=== PATIENT | female | born 1980 | race Caucasian/White ===

== ENCOUNTER 2024-12-07 20:03 | Emergency (ER) | payer OTHER ==
[2024-12-07 20:14] VITALS: RESP 17; TEMP 98.2
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
[2024-12-07 21:59] VITALS: BP 113/78; PULSE 67
== END 2024-12-07 22:02 | disposition home or self-care (01) ==
LOC: EC 20:03
DX: G40.909 Epilepsy, unspecified, not intractable, without status epilepticus (principal); Z04.1 Encounter for examination and observation following transport accident; F17.200 Nicotine dependence, unspecified, uncomplicated; Z88.0 Allergy status to penicillin; V89.2XXA Person injured in unspecified motor-vehicle accident, traffic, initial encounter; Y92.410 Unspecified street and highway as the place of occurrence of the external cause
CPT/HCPCS: 99284